=== PATIENT | female | born 1990 | race Caucasian/White ===

== ENCOUNTER 2020-02-01 23:14 | Emergency (ER) | payer BC, SELFPAY ==
[2020-02-01 23:18] VITALS: BP 99/55; PULSE 92; RESP 14; TEMP 36.1; O2SAT 95; BMI 20.7
[2020-02-01 23:19] VITALS: PULSE 92; O2SAT 95
[2020-02-01] MEDS: SODIUM CHLORIDE 0.9% 1,000 ML 150 ML IV (23:27)
[2020-02-01 23:30] VITALS: BP 89/52; PULSE 77; RESP 8; O2SAT 96
--- NOTE | 2020-02-01 23:30 | ED_ITS ---
HPI - General Adult General Chief complaint: Toxicology Problem Stated complaint: Altered mental status Time Seen by Provider: 02/01/20 23:17 Source: family (Father) and EMS Mode of arrival: EMS Limitations: altered mental status History of Present Illness HPI narrative: Patient is reported otherwise healthy 29-year-old female who arrived by EMS after they were called by the patient's family for potential overdose of edible CBD and alcohol. It was reported that this evening the patient's boyfriend and her father were drinking. Is reportedly that she was with her boyfriend when they ate some edible CBD and shortly after started to have was reported as hallucinations and then became much more somnolent unres ponsive. Patient unable to provide any HPI. There is no signs of trauma. Related Data Allergies Allergy/AdvReac Type Severity Reaction Status Date / Time No Known Drug Allergies Allergy Verified 02/01/20 23:44 Review of Systems Review of Systems ROS Unobtainable: Unobtainable due to mental status/LOC Patient History Medical History Allergies (Acute) Social History Smoking Status: Never smoker Smoking Status: Never smoker alcohol intake frequency: 0-2 drinks per day Substance Use Type: marijuana Exam Initial Vital Signs Initial Vital Signs: Vital Signs Temperature 97 F L 02/01/20 23:18 Pulse Rate 92 H 02/01/20 23:18 Respiratory Rate 14 02/01/20 23:18 Blood Pressure 99/55 L 02/01/20 23:18 Pulse Oximetry 95 02/01/20 23:18 Const General: disheveled Limitations: altered mental status HENMT Head: normal to inspection and normocephalic Resp Effort & Inspection: normal respiratory effort Auscultation: clear to auscultation bilaterally Cardio Rate: regular rate Rhythm: regular rhythm GI Inspection: non-distended Palpation: soft Skin Lesions: no lesions Rashes: no rashes Neuro General: moves all extremities Extrem General: normal to inspection and capillary refill normal Psych Appearance: disheveled Scores GCS [place] coma scale eye opening: To sound [place] coma scale verbal response: Sounds [place] coma scale motor response: Obey commands [place] coma scale total score: 11 Course Orders Ordered: ED Orders 02/01/20 23:20 Complete Blood Count AUTO DIFF Stat Comprehensive Metabolic Panel Stat Ethanol (ETOH) Stat Lipase Stat Test Serum,Qual Stat Sodium Chloride (Normal Saline 0.9%) 1,000 mls @ 150 mls/hr IV CONT KEREN Last Admin: 02/01/20 23:27 Dose: 150 mls/hr Documented by: MADI Discontinued Medications Ondansetron HCl (Zofran) 4 mg IV NOW ONE Stop: 02/01/20 23:18 Last Admin: 02/01/20 23:31 Dose: 4 mg Documented by: MADI Ondansetron HCl (Zofran) 4 mg IV NOW ONE Stop: 02/02/20 01:12 Last Admin: 02/02/20 01:15 Dose: 4 mg Documented by: MK Vital Signs Vital signs: Vital Signs - 8 hr 02/01/20 23:18 02/01/20 23:19 02/01/20 23:30 Temperature 97 F L Pulse Rate 92 H 92 H 77 Respiratory Rate 14 8 L Blood Pressure 99/55 L 89/52 L Pulse Oximetry 95 95 96 02/01/20 23:38 02/01/20 23:45 02/01/20 23:59 Temperature Pulse Rate 67 67 62 Respiratory Rate 17 17 16 Blood Pressure 90/51 L 83/51 L Pulse Oximetry 95 95 100 02/02/20 00:00 02/02/20 00:15 02/02/20 00:30 Temperature Pulse Rate 66 50 L 48 L Respiratory Rate 17 16 16 Blood Pressure 93/55 L 92/53 L 93/51 L Pulse Oximetry 100 100 100 Medical Decision Making Lab Data Lab results reviewed: Yes I reviewed the patient's lab results. Result diagrams: 02/01/20 23:20 02/01/20 23:20 Labs: Lab Results 02/01/20 02/01/20 02/01/20 Range/Units 23:20 23:20 23:20 WBC 9.9 (4.5-11.0) X10^3/uL RBC 3.89 L (4.0-5.2) X10^6/uL Hgb 12.9 (12.0-16.0) g/dL Hct 37.6 (36-46) % MCV 96.8 (80-100) fL MCH 33.2 (26-34) PG MCHC 34.3 (30-36) % RDW 12.6 (11.6-14.8) % Plt Count 278 (150-400) X10^3/uL Neut % (Auto) 30.6 L (50-75) % Lymph % (Auto) 59.7 H (25-40) % [place] % (Auto) 6.4 (3-14) % Eos % (Auto) 2.3 (2-4) % Baso % (Auto) 1.0 (0-2) % Neut # (Auto) 3000 (1449-5535) /uL Lymph # (Auto) 5900 H (7907-9296) /uL [place] # (Auto) 600 (0-900) /uL Eos # (Auto) 200 (0-450) /uL Baso # (Auto) 100 (0-100) /uL Sodium 139 (137-145) mmol/L Potassium 3.7 (3.4-5.1) mmol/L Chloride 107 (98-107) mmol/L Carbon Dioxide 28 (22-32) mmol/L BUN 16 (7-17) mg/dL Creatinine 0.82 (0.52-1.04) mg/dL Estimated GFR > 60.0 (>60) mL/min BUN/Creatinine Ratio 19.5 (6-22) Glucose 115 H (70-100) mg/dL Calcium 8.8 (8.4-10.2) mg/dL Total Bilirubin 0.7 (0.2-1.3) mg/dL AST 31 (14-36) IU/L ALT 16 (<35) IU/L Alkaline Phosphatase 58 (38-126) U/L Total Protein 7.3 (6.3-8.2) g/dL Albumin 4.0 (3.5-5.0) g/dL Globulin 3.3 (1.7-4.1) g/dL Albumin/Globulin Ratio 1.2 (1.0-2.8) Lipase 45 (23-300) U/L Serum , Qual Negative (Negative) Ethyl Alcohol 113 H ( - 10) mg/dL [facility] Narrative Medical decision making narrative: After a short observation in the emergency department the patient did become more arousable. She was able to sit up. Was able to tolerate oral intake. Was able to ambulate. Again there is no signs of trauma. Patient was bradycardic however she is a thin young 29-year-old female that runs ultra marathons. I suspect that her symptoms related to the alcohol and the edible marijuana that she partook in her earlier today. Will discharge the patient home to the care of her father and boyfriend. She was given return precautions. She expressed understanding and agreement. Discharge Plan Departure Patient Disposition: Home Clinical Impression: Alcoholic intoxication Qualifiers: Complication of substance-induced condition: with unspecified complication Qualified Code(s): F10.929 - Alcohol use, unspecified with intoxication, unspecified Marijuana intoxication Qualifiers: Complication of substance-induced condition: with unspecified complication Qualified Code(s): F12.929 - Cannabis use, unspecified with intoxication, unspecified Activity Restrictions/Additional Instructions: No driving for the next 24 hours or in the future if you partake in intoxicating substances. Use the nausea medicine as needed. Return to the emergency department for any new or worsening symptoms
[2020-02-01] MEDS: ONDANSETRON 4 MG/2 ML INJ IV (23:31)
--- NOTE | 2020-02-01 23:33 | PC.NURSE ---
Pt brought to ED from [facility] where staying with her father and BF on vacation from [place]. Patient unable to verbally respond to questions and history provided by father and boyfriend. State that this evening patient went to local dispensary and bought several edibles that took this evening after dinner follow by about 4 alcoholic drinks. Father states patient began hallucinating then vomiting, then had decreased LOC and 911 called. Upon arrival patient arousable to speech and touch, but only capable of responding with grunts and nonverbal. Patient placed on monitor and suction at bedside.
[2020-02-01 23:38] VITALS: BP 90/51; PULSE 67; RESP 17; O2SAT 95
[2020-02-01 23:40] LABS: Add Manual Diff / Slide Review NO; Basophils Absolute Auto 100 /uL (0-100); Eosinophils Absolute Auto 200 /uL (0-450); Eosinophils Percent Auto 2.3 % (2-4); Hematocrit 37.6 % (36-46); Hemoglobin 12.9 g/dL (12.0-16.0); Lymphocytes Absolute Auto 5900 /uL (1100-4500); Lymphocytes Percent Auto 59.7 % (25-40); Mean Corpuscular HGB Conc 34.3 % (30-36); Mean Corpuscular Hemoglobin 33.2 PG (26-34); Mean Corpuscular Volume 96.8 fL (80-100); Monocytes Absolute Auto 600 /uL (0-900); Monocytes Percent Auto 6.4 % (3-14); Neutrophils Absolute Auto 3000 /uL (1500-7000); Neutrophils Percent Auto 30.6 % (50-75); Platelet Count 278 X10^3/uL (150-400); Red Blood Cell Count 3.89 X10^6/uL (4.0-5.2); Red Cell Distribution Width 12.6 % (11.6-14.8); White Blood Cell Count 9.9 X10^3/uL (4.5-11.0)
[2020-02-01 23:41] LABS: Alanine Aminotransferase 16 IU/L (<35); Albumin Globulin Ratio 1.2 (1.0-2.8); Alkaline Phosphatase 58 U/L (38-126); Aspartate Aminotransferase 31 IU/L (14-36); BUN Creatinine Ratio 19.5 (6-22); Bilirubin Total 0.7 mg/dL (0.2-1.3); Blood Urea Nitrogen 16 mg/dL (7-17); Calcium 8.8 mg/dL (8.4-10.2); Carbon Dioxide 28 mmol/L (22-32); Chloride 107 mmol/L (98-107); Estimated Glomerular Filt Rate > 60.0 mL/min (>60); Globulin 3.3 g/dL (1.7-4.1); Glucose 115 mg/dL (70-100); HEMOLYSIS < 15 (0-50); Lipase 45 U/L (23-300); Potassium 3.7 mmol/L (3.4-5.1); Sodium 139 mmol/L (137-145); Total Protein 7.3 g/dL (6.3-8.2)
[2020-02-01 23:42] LABS: Ethanol (ETOH) 113 mg/dL; Pregnancy Test Serum,Qual Negative (Negative)
[2020-02-01 23:45] VITALS: BP 83/51; PULSE 67; RESP 17; O2SAT 95
[2020-02-01 23:59] VITALS: PULSE 62; RESP 16; O2SAT 100
[2020-02-02] VITALS (11 sets, daily range): BP systolic 92–106; BP diastolic 51–64; PULSE 44–75; RESP 0–32; TEMP 36.3; O2SAT 100
--- NOTE | 2020-02-02 01:11 | PC.NURSE ---
Pt ambulated around nurses station. Was a little unsteady on feet. By the time back to room pt became more nauseous and had 1 episode of emesis
[2020-02-02] MEDS: ONDANSETRON 4 MG/2 ML INJ IV (01:15)
--- NOTE | 2020-02-02 02:19 | PC.NURSE ---
Pt ambulated with SBA without subsequent nausea and vomiting.
[2020-02-02] MEDS: ONDANSETRON 4 MG ODT PREPACK 1 BOTTLE MISC (02:32)
== END 2020-02-02 02:35 | disposition home or self-care (01) ==
PROVIDERS: Emergency Provider Emergency Medicine
DX: F10.129 Alcohol abuse with intoxication, unspecified (principal); Y90.5 Blood alcohol level of 100-119 mg/100 ml; F12.929 Cannabis use, unspecified with intoxication, unspecified; R00.1 Bradycardia, unspecified
CPT/HCPCS: 36415; 80053; 80320; 83690; 84703; 85025; 96361; 96374; 96376; 99284; J2405